=== PATIENT | male | born 1995 | race Caucasian/White ===

== ENCOUNTER 2022-11-07 22:27 | Emergency (ER) | payer BC, OTHER, SELFPAY ==
--- NOTE | ~2022-11-07 | XR_ITS ---
EXAMINATION: XR chest 2V Exam Date/Time: 11/07/2022 22:30 [employer] CONSULTANT HISTORY: cp X 2 YEARS ON AND OFF, TIGHTNESS IN CHEST Comparison: None available. RESULT: Lines, tubes, and devices: None. Lungs and pleura: Clear. Cardiomediastinal silhouette: Normal. Other: No acute osseous or upper abdominal finding. IMPRESSION: No acute cardiopulmonary process. Reviewed, dictated and finalized at location K. CONSULTANT
[2022-11-07 22:31] VITALS: BP 134/83; PULSE 51; RESP 18; TEMP 36.4; O2SAT 99
--- NOTE | 2022-11-07 22:34 | ECG_ITS ---
Measurements Intervals [place] Rate: 52 P: 39 NV: 176 QRS: 35 QRSD: 106 T: 32 QT: 411 QTc: 385 Interpretive Statements SINUS BRADYCARDIA WITH SINUS ARRHYTHMIA NO PREVIOUS ECG AVAILABLE FOR COMPARISON Electronically Signed On 11-08-2022 12:52:15 IT SECURITY ENGINEER by Chantal Johnson M.D.
[2022-11-07 23:53] LABS: Basophils Absolute Auto 0.1 K/mm3 (0.0-0.1); Basophils Percent Auto 0.9 % (0.2-1.2); Eosinophils Absolute Auto 0.5 K/mm3 (0-0.3); Eosinophils Percent Auto 5.4 % (0-4.4); Hemoglobin 14.6 g/dL (14.0-18.0); Immature Granulocyte Absolute 0.03 K/mm3 (0.00-0.031); Immature Granulocyte Percent A 0.4 % (0-0.5); Lymphocytes Absolute Auto 3.18 K/mm3 (0.9-3.2); Lymphocytes Percent Auto 37.6 % (18.3-44.2); Mean Corpuscular HGB Conc 34.8 g/dl (32-36); Mean Corpuscular Hemoglobin 28.5 pg (26-34); Mean Platelet Volume 9.5 fl (7.4-10.4); Monocytes Absolute Auto 0.6 K/mm3 (0.1-0.6); Monocytes Percent Auto 7.6 % (2.6-8.5); Neutrophils Absolute Auto 4.1 K/mm3 (1.3-6.7); Neutrophils Percent Auto 48.1 % (45.5-73.1); Platelet Count Result 312 k/mm3 (150-375); Red Blood Count 5.12 M/mm3 (4.6-6.20); Red Cell Distribution Width 12.3 % (11.5-14.5); White Blood Count 8.5 K/mm3 (4.5-10.0)
[2022-11-08 00:06] LABS: Alanine Aminotransferase 38 U/L (6-50); Albumin Level 4.7 g/dL (3.5-5.1); Alkaline Phosphatase 67 U/L (38-126); Anion Gap 8 mmol/L (8-16); Aspartate Amino Transferase 31 U/L (17-59); Bilirubin,Total 0.5 mg/dL (0.2-1.3); Blood Urea Nitrogen 12 mg/dL (9-20); Carbon Dioxide 25 mmol/L (22-30); Chloride 105 mmol/L (98-107); Estimated CRCL calculation 140 ml/min; Estimated Glomerular Filt Rate > 60; Glucose 124 mg/dL (65-110); Lipase 71 U/L (23-300); Potassium 3.9 mmol/L (3.4-5.0); Sodium 138 mmol/L (137-145)
[2022-11-08 00:12] LABS: INR 1.1; Prothrombin Time 13.7 Seconds (11.1-14.7)
[2022-11-08 00:13] LABS: Partial Thromboplastin Time 30.2 SECONDS (22.3-36.8)
[2022-11-08 00:17] LABS: Troponin I < 0.012 ng/mL (0.000-0.034)
--- NOTE | 2022-11-08 00:20 | PC.NURSE ---
Pt reports carbo loading and eating a bunch of junk food last night and when he woke up this morning he felt short of breath and has been having intermittent chest pain today. Pt states pain is sharp in nature and only lasts a few seconds before it spontaneously resolves. He also has sharp pain with inspiration. He denies nausea/vomiting. Skin warm, pink, and dry. Lungs clear bilaterally.
[2022-11-08 00:24] VITALS: BP 117/75; PULSE 51; RESP 20; O2SAT 95
[2022-11-08] MEDS: KETOROLAC 30 MG/ML VIAL (*BKC) IV PUSH (01:15)
[2022-11-08 01:26] LABS: D Dimer 0.27 ug/mL (<0.48)
[2022-11-08 01:30] VITALS: BP 120/84; PULSE 47; RESP 16; O2SAT 100
[2022-11-08 01:47] LABS: Troponin I < 0.012 ng/mL (0.000-0.034)
--- NOTE | 2022-11-08 01:51 | PC.NURSE ---
Pt states he has no pain unless he takes a deep breath.
--- NOTE | 2022-11-08 02:06 | ED.GENADULT ---
HPI - General Adult General Chief complaint: Shortness of Breath/Dyspnea Stated complaint: chest pain Time Seen by Provider: 11/08/22 00:36 History of Present Illness HPI narrative: Patient is a 27-year-old gentleman who presents emergency department with a chief complaint of chest pain. Patient reports all throughout the day he has been having pain in the left side of his chest reports it is sharp and worse with inspiration. Patient reports he has no prior history of cardiac disease. The patient reports that he has had no trauma and denies fever. Related Data Allergies Allergy/AdvReac Type Severity Reaction Status Date / Time No Known Allergies Allergy Unverified 06/14/15 17:57 Review of Systems Review of Systems: A 10 system review of systems was completed on the patient and is negative except for what is stated in the HPI. Nursing and ancillary documentation was reviewed. Exam Narrative: GENERAL: Well-appearing, well-nourished, and in no acute distress. HEAD: Normocephalic, atraumatic. EYES: PERRLA and EOMI. ENT: Nares clear, no rhinorrhea or epistaxis. Mucous membranes moist. NECK: Supple. CHEST: Clear to auscultation. No respiratory distress. HEART: Regular rate and rhythm. No murmur heard. Normal peripheral pulses. ABDOMEN: Soft, nontender, nondistended, normal active bowel sounds. EXTREMITIES: Normal range of motion. No edema. SKIN: Warm, dry, no rash. NEURO: No focal deficits. Alert and oriented x3. PSYCH: Normal mood and affect. Course Course Emergency Course: EKG was performed at triage sinus rhythm rate of [address] elevation or ST depression Chest x-ray showed no focal infiltrate. Laboratory studies were obtained which showed a 0-hour troponin of less than 0.012 and a repeat 3-hour level of less than 0.012. Patient had a negative D-dimer Vital Signs Vital signs: Vital Signs Temperature 36.4 C L 11/07/22 22:31 Pulse Rate 51 L 11/07/22 22:31 Respiratory Rate 18 11/07/22 22:31 Blood Pressure 134/83 11/07/22 22:31 Pulse Oximetry 99 11/07/22 22:31 Oxygen Delivery Room Air 11/07/22 22:31 Temperature 36.4 C L 11/07/22 22:31 Pulse Rate 47 L 11/08/22 01:30 Respiratory Rate 16 11/08/22 01:30 Blood Pressure 120/84 11/08/22 01:30 Pulse Oximetry 100 11/08/22 01:30 Oxygen Delivery Room Air 11/07/22 22:31 Medical Decision Making Vital Signs Vital Signs: Vital Signs Temperature 36.4 C L 11/07/22 22:31 Pulse Rate 51 L 11/07/22 22:31 Respiratory Rate 18 11/07/22 22:31 Blood Pressure 134/83 11/07/22 22:31 Pulse Oximetry 99 11/07/22 22:31 Oxygen Delivery Room Air 11/07/22 22:31 Temperature 36.4 C L 11/07/22 22:31 Pulse Rate 47 L 11/08/22 01:30 Respiratory Rate 16 11/08/22 01:30 Blood Pressure 120/84 11/08/22 01:30 Pulse Oximetry 100 11/08/22 01:30 Oxygen Delivery Room Air 11/07/22 22:31 Lab Data 11/07/22 23:35 11/07/22 23:35 Labs: Lab Results 11/07/22 11/07/22 11/07/22 Range/Units 23:35 23:35 23:35 WBC 8.5 (4.5-10.0) K/mm3 RBC 5.12 (4.6-6.20) M/mm3 Hgb 14.6 (14.0-18.0) g/dL Hct 42.0 (42.0-52.0) % MCV 82.0 (80-100) fl MCH 28.5 (26-34) pg MCHC 34.8 (32-36) g/dl RDW 12.3 (11.5-14.5) % Plt Count 312 (150-375) k/mm3 MPV 9.5 (7.4-10.4) fl Immature Gran % (Auto) 0.4 (0-0.5) % Neut % (Auto) 48.1 (45.5-73.1) % Lymph % (Auto) 37.6 (18.3-44.2) % [place] % (Auto) 7.6 (2.6-8.5) % Eos % (Auto) 5.4 H (0-4.4) % Baso % (Auto) 0.9 (0.2-1.2) % Lymph # (Auto) 3.18 (0.9-3.2) K/mm3 [place] # (Auto) 0.6 (0.1-0.6) K/mm3 Eos # (Auto) 0.5 H (0-0.3) K/mm3 Baso # (Auto) 0.1 (0.0-0.1) K/mm3 Abs Immat Gran (auto) 0.03 (0.00-0.031) K/mm3 Absolute Neuts (auto) 4.1 (1.3-6.7) K/mm3 Absolute Nucleated RBC 0.0 (0.0-0.012) K/mm3 Nucleated RBC % 0.0 (0.0-0.2) % PT 13.7 (11.1-14.7) [place]
[2022-11-08 02:27] VITALS: BP 126/82; PULSE 50; RESP 20; O2SAT 96
[2022-11-08 06:29] LABS: D Dimer 0.27 ug/mL (<0.48)
== END 2022-11-08 02:31 | disposition home or self-care (01) ==
PROVIDERS: Physician Assistant; Emergency Provider Emergency Medicine; PCP Family Medicine
DX: R07.81 Pleurodynia (principal)
CPT/HCPCS: 36415; 71046; 80053; 83690; 84484; 85025; 85380; 85610; 85730; 93005; 96374; 99284; J1885